=== PATIENT | male | born 1995 | race Caucasian/White ===

== ENCOUNTER 2024-01-27 17:54 | Emergency (ER) | payer OTHER, SELFPAY ==
[2024-01-27 17:59] VITALS: BP 129/77
[2024-01-27] MEDS: KEFLEX 500 MG PO (19:15)
[2024-01-27 19:24] VITALS: BP 125/88
--- NOTE | 2024-01-27 22:51 | ED.SKININJ ---
HPI-Injury
General
Chief Complaint: Skin Surface Trauma
Source: patient
Exam Limitations: none
Time Seen by Provider: 01/27/24 18:18
Nursing documentation reviewed up to this point in time: agreed with
History of Present Illness-Injury
Is this injury a work related problem?: Yes
Is pt an associate of [facility]?: No
Initial Injury comments:
Patient was trying to connect 2 pipes. Tried to hammer on into the other and injured finger instead. Sustained injury to right distal index finger. Fingernail is split. Brought self to ED for eval
Past History
Past History
ED Past Medical History: None
ED Past Surgical History: None
Review of Systems
Review of Systems
Allergies reviewed?: Yes
All Other Systems: ROS reviewed and negative except as documented in HPI and ROS
Constitutional: Reports no symptoms
Musculoskeletal: Reports no symptoms
Skin: Reports other (injury to fingernail right distal index finger)
Neurological: Reports no symptoms
Psychiatric: Reports no symptoms
Phy Exam
General Physical Exam
General Presentation: well appearing and no apparent distress
General age: appears stated age
General Skin: warm and dry
General Habitus: normal
General Mental: alert
Musculoskeletal Exam
Musculoskeletal Exam: full ROM and neuro vasc intact
Skin Exam
Skin Exam: normal color, warm/dry, no rash and other (right index fingernail split, partially avulsed. Able to view nailbed. No trauma to nail bed. Nail replaced, steristrips applied.)
Psychiatric Exam
Psychiatric Exam: normal mood/affect
Course
Orders/Labs/Results
Orders:
Orders
01/27/24 18:08
CR Finger(s)/thumb Min 2 Vw Rt Urgent
Comment:
Reason For Exam: crush injury, open
Indicate Which Finger:: Index Finger
01/27/24 19:03
Cephalexin Monohydrate [Keflex] 500 mg PO NOW STA
Vital Signs
Initial and Last Documented VS:
Initial Vital Signs
Temp Pulse Resp BP Pulse Ox
97.4 F 66 16 129/77 98
01/27/24 17:59 01/27/24 17:59 01/27/24 17:59 01/27/24 17:59 01/27/24 17:59
Last Documented Vital Signs
Temp Pulse Resp BP Pulse Ox
97.4 F 74 20 125/88 100
01/27/24 17:59 01/27/24 19:24 01/27/24 19:24 01/27/24 19:24 01/27/24 19:24
*Radiology
Radiology exam reviewed: radiology read reviewed
*Pulse Oximetry
Patient hypoxic: no
*Critical Care Note
Total Time (30-74mins, 75-104mins- exclusive of procedures): Not Applicable
ED Attending Note
-
Portions of this chart may have been created with voice recognition software.� Occasional wrong word or��sound alike� substitutions may have occurred due to the inherent limitations of voice recognition software.
Discharge Plan
Departure
Patient Disposition: Home (Routine Discharge)
Date of Disposition: 01/27/24
Time of Disposition: 19:03
Patient with high blood pressure during this ER visit?: No
Condition: Good
Covid-19: Not Applicable
Discharge Problem:
Crushing injury of distal finger
Instructions: Common Finger Injuries ED
Prescriptions:
New
cephalexin 500 mg capsule
500 mg PO BID 7 Days Qty: 14 0RF
Referrals:
Jan Hudson MD [Family Provider] -
Stand Alone Forms: Return to Work
Activity Restrictions/Additional Instructions:
Follow up with your workman's comp provider on Thursday as scheduled
Interventions
Interventions:
*Risk Screen - Suicide Last Done: 01/27/24 17:59
*General Assessment Last Done: 01/27/24 17:59
*Neglect/Abuse Screening Last Done: 01/27/24 17:59
*Nursing Disposition Last Done: 01/27/24 19:24
ED-Skin Assessment Last Done: 01/27/24 18:05
Discharge Date and Time
Discharge Date/Time: 01/27/24 19:26
Print Language: PALESTINIAN
== END 2024-01-27 19:26 | disposition home or self-care (01) ==
LOC: EMR 17:54
PROVIDERS: EMERGENCY PHYSICIAN Emergency Medicine; FAMILY PHYSICIAN Family Medicine
DX: S67.190A Crushing injury of right index finger, initial encounter (principal); W23.0XXA Caught, crushed, jammed, or pinched between moving objects, initial encounter
CPT/HCPCS: 99283; 73140